=== PATIENT | female | born 1990 | race Caucasian/White ===

== ENCOUNTER 2016-05-13 17:52 | Emergency (ER) | payer BC ==
--- NOTE | 2016-05-13 18:01 | PDOC ---
History of Present Illness - General History Source: Patient Exam Limitations: No Limitations - History of Present Illness Initial Comments: 05/13/16 18:15 The patient is a 26 year old female, with no significant past medical history, who presents to the emergency department with decreased sensation to the left 3rd finger s/p a puncture wound between the 3rd and 4th digits of the left hand while the patient was cutting an avocado last night at approximately 7:30PM. The patient did not seek medical attention last night when she initially sustained the puncture wound and states that the decreased sensation of her left 3rd finger started earlier today. Last Tetanus date is unknown. Allergies: None reported. Past Surgical History: None reported. Social History: The patient is a teacher. Current everyday smoker. Reports social alcohol use. Denies drug use. PCP: Dr. Gonzales <Alma Paz - Last Filed: 05/13/16 18:18> <Denisha Rangel - Last Filed: 05/18/16 07:50> - General Chief Complaint: Injury Stated Complaint: LEFT 3-4 FINGER WEB INJURY Time Seen by Provider: 05/13/16 18:00 Past History <Alma Paz - Last Filed: 05/13/16 18:18> <Denisha Rangel - Last Filed: 05/18/16 07:50> - Past Medical History Allergies/Adverse Reactions: Allergies Allergy/AdvReac Type Severity Reaction Status Date / Time No Known Allergies Allergy Verified 05/13/16 18:05 Home Medications: Ambulatory Orders Citalopram Hydrobromide [Celexa -] 20 mg PO HS 05/13/16 Review of Systems - Review of Systems Able to Perform ROS?: Yes Comments:: 05/13/16 18:14 GENERAL/CONSTITUTIONAL: No fever or chills. No weakness. SKIN: +Puncture wound to the left 3rd finger between 3rd and 4th digits. No rash. NEUROLOGIC: +Decreased sensation to the left 3rd finger. No headache, vertigo, loss of consciousness, or change in strength. <Alma Paz - Last Filed: 05/13/16 18:18> *Physical Exam - Vital Signs Last Vital Signs Temp Pulse Resp BP Pulse Ox 98.1 F 60 15 115/74 100 05/13/16 17:54 05/13/16 17:54 05/13/16 17:54 05/13/16 17:54 05/13/16 17:54 <Alma Paz - Last Filed: 05/13/16 18:18> - Physical Exam Comments: GENERAL: Awake, alert, and fully oriented, in no acute distress NEUROLOGICAL: Dec sensation to the L 3rd finger (the portion that faces the 4th finger) SKIN: Warm, Dry, normal turgor, no rashes. +Small puncture wound to L 3rd finger , at the base, just distal to the webspace, on the side facing the 4th finger. <Denisha Rangel - Last Filed: 05/18/16 07:50> Medical Decision Making - Medical Decision Making No signs of infection. Wound is too old to suture. There is likely minor peripheral nerve damage, as there is decreased sensation in the distal portion of the finger. Counseled patient that this will take time. No acute intervention. Will give tetanus booster. <Denisha Rangel - Last Filed: 05/18/16 07:50> *DC/Admit/Observation/Transfer - Attestations Scribe Attestion: 05/13/16 18:14 Documentation prepared by Alma Paz, acting as medical insurance clerk for Denisha Rangel MD. <Alma Paz - Last Filed: 05/13/16 18:18> - Discharge Dispostion Admit: No <Denisha Rangel - Last Filed: 05/18/16 07:50> Diagnosis at time of Disposition: Laceration of hand Qualifiers: Encounter type: initial encounter Laterality: left Qualified Code(s): S61.412A - Laceration without foreign body of left hand, initial encounter - Discharge Dispostion Disposition: HOME Condition at time of disposition: Stable - Referrals Referrals: Armani Gonzales MD [Primary Care Provider] - - Patient Instructions Printed Discharge Instructions: Tips to Help You Stop Smoking, DI for Open Laceration Additional Instructions: LET THE WOUND DRY AT NIGHTTIME. KEEP COVERED WITH GAUZE AND TAPE DURING THE DAY TO KEEP IT CLEAN. RETURN TO ER IF YOU HAVE REDNESS, SWELLING, SEVERE PAIN, OR DRAINAGE OF PUS.
[2016-05-13 18:03] VITALS: BP 115/74; PULSE 60; TEMP 98.1; BMI 20.7
[2016-05-13] MEDS ORDERED: DIPHTH,PERTUSS(ACELL),TET VAC 0.5 ML VIAL IM ONE (18:09)
== END 2016-05-13 18:23 | disposition home or self-care (01) ==
LOC: FER 17:52
PROC: 3E0234Z Introduction of Serum, Toxoid and Vaccine into Muscle, Percutaneous Approach (ICD-10-PCS; principal; 2016-05-13)
DX: S61.412A Laceration without foreign body of left hand, initial encounter (principal); W26.0XXA Contact with knife, initial encounter; Y93.G3 Activity, cooking and baking; Y92.000 Kitchen of unspecified non-institutional (private) residence as the place of occurrence of the external cause; F17.210 Nicotine dependence, cigarettes, uncomplicated
CPT/HCPCS: 99282-25